=== PATIENT | female | born 1985 | race Caucasian/White ===

== ENCOUNTER 2018-09-22 06:50 | Outpatient (CLI) | payer BC ==
[2018-09-21 09:28] LABS: HEMATOCRIT 39.5 % (36.0-48.0); HEMOGLOBIN 13.1 g/dL (12-16); MCH 29.2 pg (26.0-34.0); MCHC 33.2 g/dL (31.0-37.0); MCV 88.2 fL (80.0-100.0); MEAN PLATELET VOLUME 9.7 fL (7.4-10.4); RBC 4.48 10x6/uL (4.00-5.40); RDW 14.1 % (11.5-14.5); WBC 6.6 10x3/uL (4.8-10.8)
[~2018-09-22] VITALS: Ht 170.2 cm; Wt 93.0 kg
[~2018-09-22 06:50] MED LIST: ADIPEX-P37.5 MG PO; IBUPROFEN800 MG PO; PAXIL20 MG PO; PROVENTIL/2.5 MG/3 M INH; REQUIP0.5 MG PO; ZYRTEC10 MG PO
[2018-09-22 07:21] VITALS: BP 118/76; Ht 170.2 cm; Wt 93.0 kg
== END 2018-09-22 08:35 | disposition home or self-care (01) ==
LOC: D.OPS 06:50 → D.PAN 08:30 → D.OPS 08:35 → EDSTATUS 14:30 → D.OPS 14:30 → D.PAN 14:30
PROVIDERS: Anesthesiology
DX: S83.249A Other tear of medial meniscus, current injury, unspecified knee, initial encounter (principal); Z53.9 Procedure and treatment not carried out, unspecified reason; Z01.812 Encounter for preprocedural laboratory examination